=== PATIENT | female | born 1980 | race Two or more races ===

== ENCOUNTER → 2019-07-30 | Emergency (ER) | payer MEDICAID, OTHER ==
[~2019-07-30] VITALS: Ht 160 cm; Wt 93.0 kg
[~2019-07-30] MED LIST: cefTRIAXone SOD 1,000 MG VL IM ONE
[2019-07-31 00:08] LABS: Urine Amorphous Crystal FEW /hpf (None Seen); Urine Bacteria MANY /hpf (None Seen); Urine Blood 1+ /uL (Negative); Urine Hyaline Cast MOD /lpf (0 - 2); Urine Mucus MODERATE (None Seen); Urine Specific Gravity 1.032 (1.001-1.035); Urine WBC 64 /hpf (0 - 5)
[2019-07-31 03:01] VITALS: BP 152/107
== END | disposition home or self-care (01) ==
LOC: ER 23:10
DX: N39.0 Urinary tract infection, site not specified (principal); N83.202 Unspecified ovarian cyst, left side
CPT/HCPCS: 76856; 81001; 96372

== ENCOUNTER 2020-10-04 05:19 | Emergency (ER) | payer MEDICAID, OTHER ==
[~2020-10-04] VITALS: Ht 162.6 cm; Wt 93.0 kg
[2020-10-04 05:20] VITALS: BP 173/104
== END 2020-10-04 06:29 | disposition left against medical advice (07) ==
LOC: ER 05:19
DX: R21 Rash and other nonspecific skin eruption (principal); Z53.21 Procedure and treatment not carried out due to patient leaving prior to being seen by health care provider

== ENCOUNTER 2021-07-17 02:46 | Emergency (ER) | payer MEDICAID ==
[~2021-07-17] VITALS: Ht 162.6 cm; Wt 68.0 kg
[2021-07-17 07:57] VITALS: BP 151/99
[2021-07-17] MEDS ORDERED: KETOROLAC TROMETH 60MG/2ML VIAL IM ONE (08:00)
[2021-07-17 09:02] LABS: Urine Bacteria NONE SEEN /hpf (None Seen); Urine Blood Negative /uL (Negative); Urine Mucus FEW (None Seen); Urine Specific Gravity 1.024 (1.001-1.035); Urine WBC 6 /hpf (0 - 5)
== END 2021-07-17 09:27 | disposition home or self-care (01) ==
LOC: ER 02:46
DX: M47.812 Spondylosis without myelopathy or radiculopathy, cervical region (principal); M50.30 Other cervical disc degeneration, unspecified cervical region; N30.00 Acute cystitis without hematuria
CPT/HCPCS: 72040; 81001; 96372; 99284; J1885

== ENCOUNTER 2023-08-10 05:49 | Emergency (ER) | payer MEDICAID, OTHER ==
[~2023-08-10] VITALS: Ht 162.6 cm; Wt 86.7 kg
[2023-08-10 07:29] VITALS: BP 147/99; PULSE 99; RESP 16; TEMP 98.6; O2SAT 97
[2023-08-10 08:25] LABS: Urine Bacteria FEW /hpf (None Seen); Urine Blood Negative /uL (Negative); Urine Clarity Clear (Clear); Urine Color Yellow (Yellow); Urine Hyaline Cast FEW /lpf (0 - 2); Urine Protein, UAD TRACE (Negative); Urine Specific Gravity 1.025 (1.001-1.035); Urine Urobilinogen Normal (Negative); Urine WBC 10 /hpf (0 - 5); Urine pH 5.5 (5.0-8.0)
[2023-08-10 08:37] LABS: Vaginal Bacteria Many; Vaginal Epithelial Cells Few; Vaginal Trichomonas Not Present
[2023-08-10 08:38] LABS: Vaginal Clue Cells Moderate
[2023-08-10] MEDS ORDERED: cefTRIAXone SOD 1,000 MG VL IM ONE (09:15)
[2023-08-10] MEDS ORDERED: METR-344 PO (09:24)
[2023-08-10] MEDS ORDERED: AZIT500T66 PO ×2 (09:24)
[2023-08-10] MEDS ORDERED: DOXY-447 PO (09:30)
== END 2023-08-10 09:31 | disposition home or self-care (01) ==
LOC: ER 05:49
DX: J03.90 Acute tonsillitis, unspecified (principal); N76.0 Acute vaginitis; B96.89 Other specified bacterial agents as the cause of diseases classified elsewhere; N39.0 Urinary tract infection, site not specified; Z79.2 Long term (current) use of antibiotics; Z79.899 Other long term (current) drug therapy
CPT/HCPCS: 81001; 87210; 96372; 99283; J0696

== ENCOUNTER 2024-01-13 10:07 | Emergency (ER) | payer MEDICAID ==
[~2024-01-13] VITALS: Ht 162.6 cm; Wt 91.3 kg
[~2024-01-13 10:07] MED LIST changes: +DOXY-447 PO; +METR-344 PO; -cefTRIAXone SOD 1,000 MG VL IM ONE
[2024-01-13] MEDS: cefTRIAXone SOD 1,000 MG VL IM ONE (11:12)
[2024-01-13] MEDS: cloNIDine HCL 0.1 MG TAB PO ONE (11:13)
[2024-01-13 11:21] VITALS: TEMP 97.6
[2024-01-13] MEDS: HYDROcodone-ACET 5/325MG TAB PO ONE (12:12)
[2024-01-13 12:35] VITALS: BP 151/99; PULSE 80; RESP 18; O2SAT 99
[2024-01-13] MEDS ORDERED: IBUP-1456 PO (12:36)
[2024-01-13] MEDS ORDERED: FLUC150T38 PO (12:36)
[2024-01-13] MEDS ORDERED: CEPH500C PO (12:36)
== END 2024-01-13 12:38 | disposition home or self-care (01) ==
LOC: ER 10:07
DX: H66.92 Otitis media, unspecified, left ear (principal); L04.0 Acute lymphadenitis of face, head and neck; I10 Essential (primary) hypertension; Z79.899 Other long term (current) drug therapy
CPT/HCPCS: 96372; 99283; J0696

== ENCOUNTER 2024-01-16 10:24 | Emergency (ER) | payer MEDICAID ==
[~2024-01-16] VITALS: Ht 162.6 cm; Wt 91.0 kg
[~2024-01-16 10:24] MED LIST changes: +CEPH500C PO; +FLUC150T38 PO; +IBUP-1456 PO
[2024-01-16] MEDS: FLUCONAZOLE 100 MG TAB PO ONE (12:53)
[2024-01-16 14:04] VITALS: BP 157/98; PULSE 90; RESP 18; TEMP 98.2; O2SAT 100
== END 2024-01-16 14:06 | disposition home or self-care (01) ==
LOC: ER 10:24
DX: I88.9 Nonspecific lymphadenitis, unspecified (principal); Z79.899 Other long term (current) drug therapy

== ENCOUNTER 2024-02-17 19:53 | Emergency (ER) | payer MEDICAID ==
[~2024-02-17] VITALS: Ht 162.6 cm; Wt 200.0 kg
[2024-02-17 19:53] VITALS: O2SAT 99
[2024-02-17 21:15] VITALS: BP 155/90; PULSE 78; RESP 18; TEMP 98.2
[2024-02-17] MEDS ORDERED: POLYPOW59 PO (21:24)
[2024-02-17] MEDS ORDERED: METR-344 PO (21:24)
== END 2024-02-17 21:43 | disposition home or self-care (01) ==
LOC: ER 19:53
DX: N76.0 Acute vaginitis (principal); K59.00 Constipation, unspecified; Z79.899 Other long term (current) drug therapy

== ENCOUNTER 2024-09-06 17:45 | Emergency (ER) | payer MEDICAID ==
[~2024-09-06] VITALS: Ht 162.6 cm; Wt 95.4 kg
[~2024-09-06 17:45] MED LIST changes: -DOXY-447 PO; +DOXY1CAP58 PO; +POLYPOW59 PO
[2024-09-06 18:32] VITALS: BP 149/98; PULSE 96; RESP 20; TEMP 100.3; O2SAT 98
[2024-09-06 20:11] LABS: COVID19 ANTIGEN SOFIA FIA NEGATIVE (NEGATIVE)
[2024-09-06 20:15] LABS: Rapid Influenza B Negative (Negative)
[2024-09-06 20:17] LABS: Rapid Influenza A Positive (Negative)
== END 2024-09-06 19:33 | disposition left against medical advice (07) ==
LOC: ER 17:45
DX: J11.1 Influenza due to unidentified influenza virus with other respiratory manifestations (principal); Z20.822 Contact with and (suspected) exposure to COVID-19; Z53.21 Procedure and treatment not carried out due to patient leaving prior to being seen by health care provider
CPT/HCPCS: 36415; 87426; 87804